=== PATIENT | female | born 1990 | race Caucasian/White ===

== ENCOUNTER 2019-06-24 10:27 | Outpatient (CLI) | payer OTHER | END 2019-06-24 10:28 | disposition home or self-care (01) | LOC: MADLABBHPM 10:27 | PROVIDERS: ATTEND Family Medicine | DX: O09.893 Supervision of other high risk pregnancies, third trimester (principal) | CPT/HCPCS: 36415; 82950 ==

== ENCOUNTER 2019-07-27 15:57 | Emergency (ER) | payer OTHER | END 2019-07-27 16:37 | disposition home or self-care (01) | LOC: MADERS 15:57 | DX: K04.7 Periapical abscess without sinus (principal); K02.9 Dental caries, unspecified; K03.81 Cracked tooth; F43.10 Post-traumatic stress disorder, unspecified; F41.9 Anxiety disorder, unspecified; Z79.899 Other long term (current) drug therapy | CPT/HCPCS: 99282 ==